=== PATIENT | male | born 1965 | race Caucasian/White ===

== ENCOUNTER 2024-09-30 23:39 | Emergency (ER) | payer OTHER, SELFPAY ==
[2024-09-30 23:42] VITALS: BP 164/89
[2024-10-01 00:22] VITALS: BMI 36.5
--- NOTE | 2024-10-01 00:43 | ED.GENMED ---
History of Present Illness
General
Chief Complaint: Musculo-Skeletal Complaint
Source: patient, spouse and previous radiology exam (MRI lumbar spine 2013 showing mild multilevel DJD, stable and unchanged from 2012)
Exam Limitations: none
Time Seen by Provider: 09/30/24 23:51
Nursing documentation reviewed up to this point in time: agreed with
History of Present Illness
History of Present Illness:
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 History of hypertension, hyperlipidemia. 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
bilateral knee surgeries, 4 on the right, 1 on the left.
He complains of at least 2-week history of primarily right lateral hip pain that began mildly without insightful injury. Right lateral hip pain has progressed over the past 2 weeks and much worse tonight prompting ED visit. Patient states he does
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 Generally notes only mild pain throughout the day but much worse after sitting or lying for a while, worse in the evening hours and worse first thing in the morning, improves when he is
up and about. Right lateral hip pain has worsened and he is now noted mild right lateral knee pain.
He has not had a fall nor insightful injury. No swelling, no rash, no fever no chills. He denies back pain. No weakness nor numbness. He has been taking sporadic doses of Tylenol as well as ibuprofen.
No history of similar episodes in the past.
He does have history of lumbar DJD with remote history of epidural steroid injections over 10 years ago. Current symptoms feel quite different from previous episodes of lumbar DJD and he again denies back pain.
No other associated symptoms.
INR is followed closely by PCP. Has remained fairly stable and at goal.
Past History
Past History
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
ED Past Surgical History: Orthopedic (Right knee surgeries x 4, left knee surgery x 1) and Other (Umbilical hernia repair)
Social History
Tobacco: Non-smoker
Alcohol: None
Drug: None
Personal:
Living: with family
Employment: Employed ([employer])
Family History
Family History: Other (Noncontributory)
Phy Exam
Physical Exam
Physical Exam:
GENERAL: 58-year-old obese gentleman appears his stated age, bright and alert, pleasant, appears in no acute distress. is accompanying. Mild systolic hypertension noted otherwise vital signs within normal limits.
EYE: anicteric
NECK: Supple, nontender, no meningismus, no significant adenopathy.
ENT: oral mucosa is moist. No rhinorrhea.
CARDIAC: Regular rate and rhythm. no murmur.
LUNGS: Clear breath sounds bilaterally, no acute respiratory distress, no wheezes/rales/rhonchi
ABDOMEN: Rotund, soft, nondistended, without focal tenderness, no r/g, no cvat. normoactive BS.
BACK: No midline bony tenderness. Straight leg raising is negative bilaterally.
NEUROLOGICAL: Alert and oriented x3, no focal neuro deficits. Motor strength is 5/5 bilaterally. Gross sensation is intact. Mildly antalgic gait favoring right lower extremity.
SKIN: Warm and dry, normal color, skin intact. No rash.
MUSCULOSKELETAL: Mild, chronic appearing, venous stasis discoloration bilateral lower extremities left greater than right. Peripheral pulses are full and equal b/l. Mild to moderate focal tenderness right lateral hip at the greater trochanter.
Mild pain right lateral hip with range of motion but able to fully range the hip without difficulty. There is no palpable bony pelvic tenderness. No tenderness about the right knee nor soft tissue swelling. Full knee range of motion without
difficulty nor pain. Old vertical surgical scars bilateral distal anterior knees.
PSYCH: Normal and appropriate interaction.
Course
Orders/Labs/Results
Orders:
Orders
10/01/24 00:00
CR Hip - RT w/wo Pel 2-3 Vw* Urgent
Reason For Exam: non traumatic pain
Include a pelvis x-ray?: Yes
CR Knee- Right 4 Or More View* Urgent
Reason For Exam: non traumatic pain
10/01/24 00:42
Hydrocodone 5/APAP 325 [[place] 5/325] 1 tablet PO NOW STA
Prednisone [Deltasone] 50 mg PO NOW STA
Vital Signs
Initial and Last Documented VS:
Initial Vital Signs
Temp Pulse Resp BP Pulse Ox
98.6 F 75 18 164/89 97
09/30/24 23:42 09/30/24 23:42 09/30/24 23:42 09/30/24 23:42 09/30/24 23:42
Last Documented Vital Signs
Temp Pulse Resp BP Pulse Ox
98.6 F 75 18 164/89 97
09/30/24 23:42 09/30/24 23:42 09/30/24 23:42 09/30/24 23:42 09/30/24 23:42
MDM/Problems Addressed
Differential Diagnosis Includes:
Concern for right hip trochanteric bursitis other consideration is hip strain/tendinitis, hip DJD.
No history of trauma thus fracture is unlikely.
There is no evidence of rash, no reported fever, no prior history of inflammatory arthropathy such as gout/pseudogout and no evidence of infectious nor inflammatory arthropathy on exam.
X-rays show mild DJD, proximal tibial bone spur. No evidence of fracture.
As patient chronically maintained on Coumadin will avoid NSAIDs and instead will treat with course of prednisone and recommend he continue Tylenol for as needed mild pain and will prescribe Vicodin for as needed moderate pain.
Discussed importance of avoiding all NSAIDs while taking prednisone.
Prompt follow-up with PCP and patient has been referred to orthopedics as well.
Chronic conditions affecting care: DM and Other (History of DVT-chronically maintained on Coumadin prior history of knee surgeries.)
*Radiology
Radiology exam reviewed: preliminary read by ED provider (Right hip x-ray shows mild DJD. No fracture. Right knee x-ray shows proximal medial tibial bone spur otherwise unremarkable.)
*Pulse Oximetry
Patient hypoxic: no
*Critical Care Note
Total Time (30-74mins, 75-104mins- exclusive of procedures): Not Applicable
ED Attending Note
-
Portions of this chart may have been created with voice recognition software.� Occasional wrong word or��sound alike� substitutions may have occurred due to the inherent limitations of voice recognition software.
Discharge Plan
Departure
Patient Disposition: Home (Routine Discharge)
Date of Disposition: 10/01/24
Time of Disposition: 00:44
Patient with high blood pressure during this ER visit?: No
Condition: Good
Discharge Problem:
Greater trochanteric bursitis of right hip
Instructions: Hip Bursitis Exercises, Hip Pain ED
Prescriptions:
New
prednisone 10 mg Tablet
See Rx Instructions .ROUTE .COMPLEX Qty: 45 0RF
Rx Instructions:
Take By Mouth:
50 mg daily x3 days, 40 mg daily x3 days,
30 mg daily x3 days, 20 mg daily x3 days,
10 mg daily x3 days
hydrocodone-acetaminophen 5-300 mg tablet
1 tab PO BIDPRN PRN (Reason: moderate pain) Qty: 10 0RF
No Action
warfarin [Jantoven] 2.5 MG tablet
2.5 mg PO .TUESAT
ropinirole 2 MG tablet
2 mg PO HS
warfarin [Jantoven] 5 MG tablet
5 mg PO .SUNMONWEDFRI
metformin 500 mg Tablet
500 mg PO DAILY
ropinirole 1 mg Tablet
1 mg PO DAILY
lisinopril 30 mg Tablet
30 mg PO DAILY
rosuvastatin 40 mg Tablet
40 mg PO DAILY
Referrals:
Ivan Miller PA-C [Family Provider] - Call in 1-3 days for appt
Joe Perla MD [Active] - Call in 1-3 days for appt
Interventions
Interventions:
*Risk Screen - Suicide Last Done: 09/30/24 23:42
*General Assessment Last Done: 09/30/24 23:42
*Neglect/Abuse Screening Last Done: 09/30/24 23:42
*ED- Fall Risk Assessment Last Done: 09/30/24 23:42
*ED COVID-19 Vaccine History Last Done: 09/30/24 23:42
ED-Musculoskeletal Assessment Last Done: 10/01/24 00:26
Discharge Date and Time
Print Language: PASHTO
[2024-10-01] MEDS: DELTASONE 50 MG PO (01:04)
[2024-10-01] MEDS: NORCO 5/325 1 TABLET PO (01:04)
[2024-10-01 01:05] VITALS: BP 149/88
== END 2024-10-01 01:05 | disposition home or self-care (01) ==
LOC: EMR 23:39
PROVIDERS: EMERGENCY PHYSICIAN Emergency Medicine; FAMILY PHYSICIAN Physician Assistant Medical
DX: M70.61 Trochanteric bursitis, right hip (principal); I10 Essential (primary) hypertension; E78.00 Pure hypercholesterolemia, unspecified; Z79.01 Long term (current) use of anticoagulants; Z86.718 Personal history of other venous thrombosis and embolism
CPT/HCPCS: 99283; 73502; 73564